=== PATIENT | male | born 1985 | race Caucasian/White ===

== ENCOUNTER → 2017-06-03 | Outpatient (CLI) | payer BC ==
[~2017-06-03] MED LIST: ALBU8.5H12 IH; DOXY50SY2 PO; HYDR-3074 PO; IBUP800T37 PO; KET10 PO; LIND60LO5 TP; LOR5/325 PO; OXYC-865 PO; PERM60CR TP; ROBC PO; [UNRECOGNIZED DRUG - CODE] PO; [UNRECOGNIZED DRUG - OTHER] TOP
[2017-06-03 13:48] LABS: PLATELET COUNT, AUTOMATED 208 K/uL (150-450)
== END ==
LOC: LAB 13:25
PROVIDERS: ATTEND Internal Medicine
DX: L63.8 Other alopecia areata (principal); Z79.899 Other long term (current) drug therapy
CPT/HCPCS: 36415; 82040; 82247; 82310; 82374; 82435; 82565; 82947; 84075; 84132; 84155; 84295; 84450; 84460; 84520; 85007; 85027

== ENCOUNTER → 2017-06-26 | Outpatient (CLI) | payer BC ==
[2017-06-26 09:21] LABS: PLATELET COUNT, AUTOMATED 220 K/uL (150-450)
== END ==
LOC: LAB 09:06
PROVIDERS: ATTEND Internal Medicine
DX: L63.8 Other alopecia areata (principal); Z79.899 Other long term (current) drug therapy
CPT/HCPCS: 36415; 82040; 82247; 82310; 82374; 82435; 82565; 82947; 84075; 84132; 84155; 84295; 84450; 84460; 84520; 85007; 85027